=== PATIENT | male | born 1995 | race African-American/Black ===

== ENCOUNTER 2016-10-26 17:38 | Emergency (ER) | payer OTHER ==
[~2016-10-26] VITALS: Ht 180.3 cm; Wt 74.4 kg
[2016-10-26 17:43] VITALS: TEMP 37; Ht 180.3 cm; Wt 74.4 kg
--- NOTE | 2016-10-26 18:46 | EMERGENCY ROOM VISIT NOTE ---
History Report prepared by Willy: Jimi Covarrubias Under the Supervision of: Dr. Jose Luis Fowler M.D. First contact with patient: 18:34 Chief Complaint: ABDOMINAL PAIN Stated Complaint: DISCOMFORT IN LOWER RIGHT AB AREA History of Present Illness The patient is a 21 year old male who presents to the Emergency Room with complaints of constant right sided abdominal pain beginning two days prior to arrival. He currently rates his discomfort as a 1/10 in severity. The patient states his pain worsens with movement. He notes the pain worsens during working out and denies recent trauma. The patient denies previous abdominal surgeries, as well. He states he has normal bowel movements. The patient denies burning or pain with urination, fever, vomiting, testicular pain, and history of hernias. 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 A total of 10 systems reviewed and were otherwise negative. Past Medical & Surgical Medical Problems: (1) No pertinent past medical history Family History Patient reports no known family medical history. Social History Smoking Status: Never Smoker Marital Status: in relationship Occupation Status: [employer] student Current/Historical Medications Unable to Obtain Active Prescriptions or Reported Meds Allergies Coded Allergies: No Known Allergies (Unverified , 10/26/16) Physical Exam Vital Signs Date Time Temp Pulse Resp B/P Pulse Ox O2 Delivery O2 Flow Rate FiO2 10/26/16 18:58 80 18 136/89 98 10/26/16 17:43 37.0 84 18 138/72 100 Room Air Physical Exam GENERAL: Patient is in no acute distress. HEENT: No acute trauma, normocephalic atraumatic, mucous membranes moist, no nasal congestion, no scleral icterus. NECK: No stridor, no adenopathy, no meningismus, trachea is midline. LUNGS: Clear to auscultation bilaterally, no wheeze, no rhonchi, breath sounds equal. HEART: Without murmurs gallops or rubs, regular rate and rhythm. ABDOMEN: No discomfort with palpation in the right lower quadrant. Soft, nontender, bowel sounds positive, no hernias, no peritonitis. EXTREMITIES: No cyanosis or edema, full range of motion of all the joints without pain or difficulty, no signs for acute trauma. NEUROLOGIC: Oriented x 3, no acute motor or sensory deficits, no focal weakness. SKIN: No rash, no jaundice, no diaphoresis. GROIN: Nontender testicles, no obvious hernia. Medical Decision & Procedures ED Course 1834: The patient was evaluated in room C2B. A complete history and physical exam was performed. 1849: Reevaluated the patient. Discussed results and discharge instructions: He verbalized understanding and agreement. The patient is ready for discharge. Medical Decision The differential diagnoses include but are not limited to: muscle injury, hernia , appendicitis, diverticulitis, UTI, constipation. The patient presents with some intermittent mild right lower quadrant pain for the last few weeks. The pain is noticed when he exercises and does sit ups. He has not had fever or vomiting, he has not had urinary complaints or diarrhea. I talked to the patient about having lab work done and potentially having a CT of the abdomen and pelvis to further evaluate the appendix. The patient states that he doesn't really have any pain right now and during my abdominal exam, I could not elicit any abdominal discomfort. He would prefer to wait and see how things go. I think this is reasonable. The patient was encouraged to avoid any exercise for about a week or so. If he has increasing pain, fever or nausea , he will need to come back for further assessment. Impression Primary Impression: RLQ abdominal pain Scribe Attestation The scribe's documentation has been prepared under my direction and personally reviewed by me in its entirety. I confirm that the note above accurately reflects all work, treatment, procedures, and medical decision making performed by me. Departure Information Dispostion Home / Self-Care Prescriptions Unable to Obtain Active Prescriptions or Reported Meds Referrals No Doctor, Assigned (PCP) Forms HOME CARE DOCUMENTATION FORM, IMPORTANT VISIT INFORMATION Patient Instructions My [facility] Additional Instructions motrin 600 mg 3x per day for 5 days heat or warm compresses to the sore area rest no exercise or gym for 1 week return for worsening pain, fever, chills, nausea or if not improving as appendicitis is still possible as we discussed
[2016-10-26 18:58] VITALS: BP 136/89; PULSE 80; O2SAT 98
== END 2016-10-26 18:58 | disposition home or self-care (01) ==
LOC: C.EDB 17:41 → C.EDC 18:58
DX: R10.31 Right lower quadrant pain (principal)